=== PATIENT | female | born 1975 | race Caucasian/White ===

== ENCOUNTER 2018-09-15 13:11 | Emergency (ER) | payer OTHER ==
[~2018-09-15] VITALS: Ht 154.9 cm; Wt 50.8 kg
[2018-09-15 13:41] LABS: URINE BILIRUBIN NEGATIVE (Negative); URINE BLOOD NEGATIVE (Negative); URINE CLARITY CLEAR; URINE COLOR YELLOW; URINE GLUCOSE-RANDOM* NEGATIVE (Negative); URINE KETONES 2+ (Negative); URINE LEUKOCYTES NEGATIVE (Negative); URINE NITRITE NEGATIVE (Negative); URINE PROTEIN (DIPSTICK) TRACE (Negative); URINE SPECIFIC GRAVITY 1.015 (1.005-1.035); URINE UROBILINOGEN 0.2 E.U./dl (0.2-1.0)
[2018-09-15 13:56] LABS: ABSOLUTE NEUTROPHILS 3.3 thou/uL (1.4-8.2); BASOPHILS 1.1 % (0.0-2.0); EOSINOPHILS 0.4 % (0.0-3.0); HEMATOCRIT 31.5 % (37.0-47.0); HEMOGLOBIN 9.9 gm/dL (12.0-15.0); LYMPHOCYTES 18.8 % (24.0-44.0); MCH 22.5 pg (26.0-34.0); MCHC 31.5 g/dL (28.0-37.0); MCV 71.4 fL (80.0-100.0); MONOCYTES 5.2 % (1.0-8.0); PLATELET COUNT 189 thou/uL (150-400); POLYS 74.5 % (36.0-66.0); RBC 4.42 mil/uL (4.20-5.00); RDW 18.3 % (10.5-14.5); WBC 4.4 thou/uL (4.0-11.0)
[2018-09-15 14:05] LABS: ANISOCYTOSIS 2+; HYPOCHROMASIA SLIGHT; MICROCYTES 1+
[2018-09-15 14:06] LABS: CALCIUM 9.2 mg/dL (8.5-10.1); CREATININE 0.6 mg/dL (0.6-1.0); POLYCHROMASIA OCCASIONAL; POTASSIUM 3.6 mmol/L (3.5-5.1)
[2018-09-15 14:12] LABS: ALBUMIN 4.3 g/dL (3.4-5.0); TOTAL BILIRUBIN 0.4 mg/dL (<0.1-1.0)
[2018-09-15] MEDS ORDERED: ZOFRAN ODT4 MG PO (15:53)
[2018-09-15 15:59] VITALS: BP 105/67
== END 2018-09-15 16:20 | disposition home or self-care (01) ==
LOC: ER 13:11
PROVIDERS: Emergency Medicine
DX: E86.0 Dehydration (principal); Z88.5 Allergy status to narcotic agent